=== PATIENT | male | born 1950 | race Caucasian/White ===

== ENCOUNTER → 2016-08-28 | Outpatient (CLI) | payer OTHER ==
[~2016-08-28] MED LIST: CZR25 PO; FINA5TAB PO; LEVO50TA6 PO; ZNTT/150 PO
[2016-08-28 13:03] LABS: BLOOD UREA NITROGEN 19 mg/dl (7-18); CALCIUM 8.4 mg/dl (8.5-10.1); CARBON DIOXIDE 28 mmol/L (21-32); CHLORIDE 105 mmol/L (98-107); CHOLESTEROL 183 mg/dl (0-200); GLUCOSE 83 mg/dl (70-99); POTASSIUM 3.8 mmol/L (3.5-5.1); SODIUM 141 mmol/L (136-145); TRIGLYCERIDES 127 mg/dl (0-150); VERY LOW DENSITY LIPOPROT CALC 25 mg/dl
[2016-08-28 13:14] LABS: CHOLESTEROL/HDL RATIO 4.4; HDL CHOLESTEROL 42 mg/dl; LDL CHOLESTEROL CALCULATED 116 mg/dl
== END | disposition home or self-care (01) ==
LOC: C.LABPBG 08:31
PROVIDERS: ATTEND Family Medicine
DX: E03.9 Hypothyroidism, unspecified (principal); E78.5 Hyperlipidemia, unspecified; I10 Essential (primary) hypertension

== ENCOUNTER → 2016-11-10 | Outpatient (CLI) | payer OTHER | END | disposition home or self-care (01) | LOC: C.LABPBG 09:07 | PROVIDERS: ATTEND Nurse Practitioner Adult Health | DX: Z11.59 Encounter for screening for other viral diseases (principal); N40.0 Benign prostatic hyperplasia without lower urinary tract symptoms ==

== ENCOUNTER → 2016-12-26 | Outpatient (CLI) | payer OTHER ==
--- NOTE | 2016-12-31 09:15 | CODING QUERY MEDICAL NECESSITY ---
SUPPORTING DIAGNOSIS NEEDED Dr. Gómez, A supporting diagnosis is required for the test/procedure performed on this patient in order for us to be reimbursed by the patient's insurance. Please provide a supporting diagnosis for the following test/procedure listed below next to the test name along with your signature. *If there is no additional diagnosis for this patient that would support the following test/procedure please document that below next to the test/procedure. Test(s)/Procedure(s) that require a supporting diagnosis: * ([id number]) VITAMIN D ASSAY DIAGNOSIS: * ([id number]) B12 VITAMIN LEVEL DIAGNOSIS: DATE OF SERVICE: 12/26/16 Provider Signature: Date: Thank you Darrel Jackson [facility] Information Management Once completed, please kindly fax back to [phone] For questions please call [phone]
== END | disposition home or self-care (01) ==
LOC: C.LABPBG 08:34
PROVIDERS: ATTEND Student in an Organized Health Care Education/Training Program
DX: E56.9 Vitamin deficiency, unspecified (principal); G60.9 Hereditary and idiopathic neuropathy, unspecified

== ENCOUNTER → 2017-01-19 | Outpatient (CLI) | payer OTHER ==
--- NOTE | 2017-01-19 07:56 | DIAGNOSTIC IMAGING REPORT ---
(CHEST) THORAX WITHOUT HISTORY:66 [id number] Lung nodule follow-up study. COMPARISON: CT chest 12/28/2015, 01/15/2015, 07/04/2014. TECHNIQUE: Multiple axial CT images of the chest were obtained without IV contrast. FINDINGS: There is slightly decreased attenuation of the left thyroid without large dominant thyroid nodule identified. There is mild symmetric appearing bilateral gynecomastia. No pathologic-appearing adenopathy. Heart is normal in size with minimal coronary arterial calcifications. There is no pneumothorax, pleural effusion or focal airspace consolidation. Central airways are patent. There are multiple lateral noncalcified pulmonary nodules of the lungs bilaterally measuring up to 4 mm, several of which are pleural-based, for example see image 33, 35 and 46 of the axial series. These appear stable dating back to study dated 07/04/2014. No new or suspicious pulmonary nodules are identified. Circumscribed low attenuating lesion left hepatic lobe, 3.6 x 2.6 cm is unchanged suggesting cyst. There is unchanged nonspecific area of decreased attenuation, 8 mm in the posterior spleen likely benign based on stability dating back to 07/04/2014. Multiple gallstones are again noted. Additionally, there is a circumscribed 7 mm low attenuating focus of the pancreatic tail which is unchanged dating back to 07/04/2014 which may reflect a focal area of fat interdigitating between the pancreatic parenchyma. Low attenuating lesion of the superior pole right kidney, 1.7 cm suggests cyst. Soft tissues are unremarkable. The bones appear intact. IMPRESSION: 1. No acute cardiopulmonary abnormality. 2. Multiple noncalcified nodules of the lungs bilaterally as described above measuring up to 4 mm appear unchanged dating back to 07/04/2014. According to the 2017 Lukasz guidelines as below, no additional need for follow-up is needed at this time. 3. Cholelithiasis. 4. Additional incidental findings as above. Please refer to below summary of Fleischner criteria recommendations for follow-up of incidental CT nodules (Lola Herzog, Guidelines for management of small pulmonary nodules detected on CT scans: A statement from the Fleischner Society, Radiology 237: [phone].) SOLID NODULES Solitary nodule size: <6 mm * Low risk patients: no follow-up needed * high risk patients: optional CT at 12 months Note: newly detected indeterminate nodule in persons 35 years of age or older. * Low risk patients: minimal or absent history of smoking and/or other known risk factors * high risk patients: history of smoking or of other known risk factors (e.g. first degree relative with lung cancer, or exposure to asbestos, radon, uranium) * if a nodule up to 8 mm is partly solid or is ground glass further follow-up is required after 24 months to exclude possible slow growing adenocarcinoma (GILL) The above report was generated using voice recognition software. It may contain grammatical, syntax or spelling errors. Electronically signed by: Tj Vallecillo 01/19/2017 7:54 AM Dictated Date/Time: 01/19/2017 7:43 AM
== END | disposition home or self-care (01) ==
LOC: C.CTS 07:06
PROVIDERS: ATTEND Family Medicine
DX: R91.8 Other nonspecific abnormal finding of lung field (principal); K80.20 Calculus of gallbladder without cholecystitis without obstruction

== ENCOUNTER → 2017-03-19 | Outpatient (CLI) | payer OTHER ==
[2017-03-19 12:53] LABS: ALT/SGPT 110 U/L (12-78); BLOOD UREA NITROGEN 17 mg/dl (7-18); BUN/CREATININE RATIO 18.1 (10-20); CALCIUM 9.1 mg/dl (8.5-10.1); CARBON DIOXIDE 30 mmol/L (21-32); CHLORIDE 103 mmol/L (98-107); CHOLESTEROL 219 mg/dl (0-200); CREATININE 0.96 mg/dl (0.60-1.40); GLUCOSE 96 mg/dl (70-99); POTASSIUM 3.4 mmol/L (3.5-5.1); SODIUM 138 mmol/L (136-145); TRIGLYCERIDES 185 mg/dl (0-150); VERY LOW DENSITY LIPOPROT CALC 37 mg/dl
[2017-03-19 13:03] LABS: CHOLESTEROL/HDL RATIO 4.6; HDL CHOLESTEROL 48 mg/dl; LDL CHOLESTEROL CALCULATED 134 mg/dl
== END | disposition home or self-care (01) ==
LOC: C.LABPBG 07:33
PROVIDERS: ATTEND Family Medicine
DX: I10 Essential (primary) hypertension (principal); E03.9 Hypothyroidism, unspecified; E78.5 Hyperlipidemia, unspecified

== ENCOUNTER → 2017-07-27 | Outpatient (CLI) | payer OTHER | END | disposition home or self-care (01) | LOC: C.PATHSPEC 17:51 | PROVIDERS: ATTEND Urology | DX: C61 Malignant neoplasm of prostate (principal); R97.20 Elevated prostate specific antigen [PSA] ==

== ENCOUNTER → 2017-10-22 | Outpatient (CLI) | payer OTHER, MEDICARE ==
[~2017-10-22] MED LIST changes: +CHOL2000 PO; +CYAN100020; +RANI150T85 PO; -ZNTT/150 PO
== END | disposition home or self-care (01) ==
LOC: C.LABPBG 08:13
PROVIDERS: ATTEND Urology
DX: C61 Malignant neoplasm of prostate (principal)

== ENCOUNTER → 2017-12-02 | Outpatient (CLI) | payer OTHER ==
[~2017-12-02] MED LIST changes: -CYAN100020; +CYAN10004 PO; +GADAVIST IV PRN
--- NOTE | 2017-12-02 12:59 | DIAGNOSTIC IMAGING REPORT ---
PROSTATE MRI COMBO CLINICAL HISTORY: 67 years-old Male presenting with PROSTATE CA.. TECHNIQUE: Multisequence, multiplanar MR imaging of the prostate was performed before and after the administration of intravenous contrast. Additional postprocessing was performed on a separate Nualight workstation by the radiologist for 3-D volumetric segmentation of the prostate and contouring of region(s) of interest (MARIE) for targeting. IV contrast: 11 cc Gadavist. COMPARISON: None. FINDINGS: Prostate: The prostate measures 4.4 cm (DynaCAD prostate boundary segmentation was unable to be performed due to the metallic artifact). Moderate changes of benign prostatic hyperplasia. Precontrast T1 weighted imaging demonstrates no evidence of intrinsic T1 hyperintensity to suggest hemorrhage. Evaluation for prostate malignancy is nondiagnostic due to the metallic artifact from the right hip prosthesis. Seminal vesicles normal. Bladder: Normal. Bowel: Visualized portion of the rectum normal. Peritoneum: The Hydrogel is appropriately positioned between the prostate and rectum measuring between 5 mm and 10 mm in thickness. Lymph nodes: No lymphadenopathy in the visualized portion of the pelvis. Vasculature: Iliac vessels patent. Abdominal wall: Normal. Osseous structures: Normal bone marrow signal intensity. Of note, the right hip is obscured by the metallic artifact. IMPRESSION: 1. Evaluation for prostate malignancy is nondiagnostic due to the metallic artifact from the right hip prosthesis. 2. The Hydrogel is appropriately positioned between the prostate and rectum. Electronically signed by: Cristino Gallegos M.D. 12/02/2017 12:58 PM Dictated Date/Time: 12/02/2017 12:46 PM
== END | disposition home or self-care (01) ==
LOC: C.MRIBC 09:56
PROVIDERS: ATTEND Radiology Radiation Oncology
DX: C61 Malignant neoplasm of prostate (principal)

== ENCOUNTER → 2018-02-25 | Outpatient (CLI) | payer OTHER ==
[~2018-02-25] MED LIST changes: +CALC500C70 PO; -GADAVIST IV PRN; +TAMS0.4C38 PO
== END | disposition home or self-care (01) ==
LOC: C.LABPBG 09:12
PROVIDERS: ATTEND Physician Assistant Medical
DX: C61 Malignant neoplasm of prostate (principal)

== ENCOUNTER → 2018-03-04 | Outpatient (CLI) | payer OTHER ==
[2018-03-04 14:20] VITALS: BP 135/86; PULSE 74; TEMP 36.8; O2SAT 97
--- NOTE | 2018-03-04 16:21 | Radiation Oncology Follow-Up ---
Radiation Oncology Follow-Up Date of Visit Mar 04, 2018. 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 Initiation of hormone suppression with Lupron 30 mg IM. Given at urology. Plan for total of 6 months. Status post completion of radiation therapy January 26, 2018. He received 7000 centigrade utilizing hypo-fractionation. Last Edited By: Lelo Freeman on Feb 05, 2018 11:12 History of Present Illness Mr. Junior is without a family history of prostate cancer. The patient has been on finasteride for several years and has had intermittent prostate- specific antigens. On 11/10/2016 his prostate-specific antigen was 5.9. Because of the finasteride this would translate to an effective prostate- specific antigen of 11.8. This was repeated on 05/07/2017 and showed a slight increase to 6.02 which would translate to an effective value of 12.04. Because of the persistent abnormal prostate-specific antigen patient was seen by Dr. Bridges. He was being followed for benign prostatic hypertrophy and increasing urinary symptoms. These symptoms had not dramatically improved from the several years of finasteride. He was given a trial of tamsulosin earlier without any significant improvement. These recent prostate-specific antigens with the first one taken in several years. His digital rectal exam showed no evidence of induration or nodularity. Dr. Bridges therefore spoke with the patient about the benefits of ultrasound-guided biopsies. The patient agreed and on 07/27/2017 he underwent ultrasound-guided biopsies. A total of 14 biopsies were taken. This includes two each from the right and left base, right and left mid, right and left apex and one biopsy each from the right and left anterior gland. All biopsies were negative with the exception of the biopsy from the right anterior gland. This revealed prostatic adenocarcinoma K[place] grade 4+3 involving 10% of the core tissue sample. The Carlita pattern 4 represented approximately 60% of the tumor. There was no perineural or lymphovascular invasion identified. Case: [id number]. Patient returned to discuss these findings with Dr. Bridges. He briefly discussed the range of treatment options that the patient has. He was kind enough to ask us to see the patient to discuss with him the radiation treatment options. He returned to see Dr. Bridges on September 03 to discuss the surgical treatment options. After that discussion the patient wished to consider debbie healing (short-term active surveillance). The patient therefore underwent a repeat PSA on October 22, 2017. The result was 7.55 which is an increase from the prior report of 6.02. These results of course must be doubled due to his long-standing use of finasteride. His functional PSA is therefore 15.1. This places the patient in a an unfavorable intermediate risk category with Carlita grade 4+3. Options of treatment were reviewed with him. His ultimate decision was to go forward with hormone suppression followed by external beam radiation therapy. He completed radiation January 26, 2018. He received 7000 centigrade utilizing hypo-fractionation. Interim History He has been doing well over the past month. He feels that his urinary symptoms have steadily improved. He did give an AUA score of 16. At the end of treatment he had given an AUA score of 19. He had been tried on tamsulosin. He felt that this medication made his urinary symptoms worse especially in regards to urgency. He continues on hormone suppression. He does have hot flashes. He has had weight gain. He is taking calcium and vitamin D as instructed. His next injection of Lupron will be in April. He completed an expanded prostate cancer composite for clinical practice and gave a score of 2 of 12 and urinary incontinence symptoms. He gave a score of 4 of 12 in urinary irritation symptoms. He gave a score of 0 of 12 and bowel symptoms. He gave a score of 8 of 12 and sexual symptoms. He gave a score of 5 of 12 in hormonal vitality symptoms. His total was 19 of 60. He had a recheck PSA February 25, 2018 and that was 0.019. Allergies Coded Allergies: Tramadol (Verified Allergy, Unknown, SEDATED AND CONSTIPATION, 07/28/14) Uncoded Allergies: preop skin scrub (Allergy, Intermediate, skin red, 08/19/17) Home Medications Scheduled Calcium/Vitamin D (Os-Jose 500 Plus D), 1 TAB PO DAILY Cholecalciferol (Vitamin D3), 1 CAP PO DAILY Cyanocobalamin (Vitamin B-12 1000 Mcg), 1 TAB PO DAILY Finasteride (Proscar), 5 MG PO DAILY Levothyroxine Sodium (Levothyroxine Sodium), 50 MCG PO DAILY Losartan Potassium (Losartan Potassium), 25 MG PO DAILY Scheduled PRN Ranitidine (Zantac), 150 MG PO DAILY PRN for heartburn Review of Systems Gastrointestinal: Symptoms: WNL Oral: Symptoms: No Problems Respiratory: Symptoms: WNL Urinary: Symptoms: Nocturia Comments: ncoturia times 3 , urgency , trouble holding urine , dribbling Skin: Symptoms: No Problems Additional Notes: He completed a distress management report and answered "no" to all questions. Physical Exam Vital Signs Date Time Temp Pulse Resp B/P (MAP) Pulse Ox O2 Delivery O2 Flow Rate FiO2 03/04/18 14:20 36.8 74 20 135/86 97 ECOG Performance Status: 0 General Appearance: no apparent distress Eyes: normal inspection, EOMI ENT: normal ENT inspection, hearing grossly normal Neck: no adenopathy, thyroid normal Respiratory/Chest: lungs clear, no respiratory distress, no accessory muscle use Cardiovascular: regular rate, rhythm, no gallop, no murmur Abdomen: non tender, soft, no organomegaly Extremities: no pedal edema Neurologic/Psychiatric: no motor/sensory deficits, alert, normal mood/affect Skin: warm/dry Pain Management Patient Reports Pain: No Side: Bilateral Patient Preferred Pain Scale: 0 - 10 Initial Pain Intensity: 0.0 Pain Management Plan He denies pain therefore requires no pain management. Laboratory Laboratory Results: were reviewed Laboratory Comments: Reviewed in the interim history. Pathology Pathology Results: were reviewed, and pertinent findings noted in HPI Imaging Imaging Studies: not applicable Assessment & Plan Plan: Continue regular follow-up with his primary care provider and urology. He will be seeing Dr. Bridegs in April. He will be due for another Lupron injection. He is taking calcium and vitamin D. We discussed medication to help with the urinary symptoms. He feels that these are improving. He did have side effects to the tamsulosin and therefore will hold on adding any additional medications. Today we completed a cancer survivorship care plan. A copy of the document was given to the patient. He was given an order for a PSA prior to his next visit. We asked him to return to our office in 6 months. He may call if he has any questions or concerns in the interim. Total Time In Follow-Up I spent 20 minutes speaking to the patient in performing examination. I spent 20 minutes reviewing information, preparing the survivorship document, and completing this note. AK Copy To Truman Bridges M.D.; Radha Castelan MD
== END | disposition home or self-care (01) ==
LOC: C.ONC 14:11
PROVIDERS: ATTEND Physician Assistant Medical
DX: Z08 Encounter for follow-up examination after completed treatment for malignant neoplasm (principal); Z92.3 Personal history of irradiation; Z85.46 Personal history of malignant neoplasm of prostate

== ENCOUNTER 2022-07-23 19:53 | Inpatient (IN) ==
[2022-07-23 21:05] LABS: Partial Thromboplastin Time 28.2 Seconds (21.0-31.0); Prothrombin Time 10.6 Seconds (9.0-12.0)
[2022-07-23 21:10] LABS: Basophils # (auto) 0.04 K/uL (0-0.2); Basophils % (auto) 0.2 %; Eosinophils # (auto) 0.03 K/uL (0-0.50); Eosinophils % (auto) 0.2 %; Hematocrit (blood only) 40.7 % (40.1-51.0); Hemoglobin 14.8 g/dl (14.0-18.0); Immature Granulocytes # (auto) 0.15 K/uL (0.00-0.02); Immature Granulocytes % (auto) 0.8 %; Lymphocytes # (auto) 1.29 K/uL (1.2-3.4); Lymphocytes % (auto) 7.1 %; Mean Corpuscular Hemoglobin 30.3 pg (25.0-34.0); Mean Corpuscular Hgb Conc 36.4 g/dL (32.0-36.0); Mean Corpuscular Volume 83.4 fL (80.0-100.0); Mean Platelet Volume 10.6 fL (9.4-12.4); Monocytes # (auto) 1.84 K/uL (0.24-0.82); Monocytes % (auto) 10.2 %; Neutrophils # (auto) 14.76 K/uL (1.4-6.5); Neutrophils % (auto) 81.5 %; Platelet Count 249 K/uL (130-400); RDW Coefficient of Variation 12.7 % (11.5-14.5); RDW Standard Deviation 38.4 fL (36.4-46.3); Red Blood Count 4.88 M/uL (4.63-6.08); White Blood Count 18.11 K/ul (4.8-10.8)
[2022-07-23 21:14] LABS: Albumin Globulin Ratio 1.1 (0.9-2); Albumin Level 3.7 gm/dl (3.4-5.0); BUN Creatinine Ratio 15.4 (10-20); Bilirubin,Total 1.9 mg/dl (0.2-1.0); Calcium 9.2 mg/dl (8.5-10.1); Creatinine Clr Calc Pharmacy 100.2 ml/min; Est GFR (African American) 97.9 ml/min; Est GFR (Non-African American) 84.5 ml/min; Globulin 3.4 gm/dl (2.5-4.0); Potassium 4.1 mmol/L (3.5-5.1); Total Protein 7.1 gm/dl (6.0-8.3)
[2022-07-23] MEDS ORDERED: PIPERACILLIN/TAZOBACTAM 4.5 GM/120 ML BAG IV ONE (21:54)
--- NOTE | 2022-07-23 22:39 | History & Physical Report ---
Date of Service July 23, 2022 Assessment & Plan (1) Abscess, perirectal: Plan: Perirectal abscess noted on US. Patient is presently afebrile, HD stable and nontoxic in appearance. Pain is well controlled. -Continue Zosyn -Pain control with Tylenol PRN, Oxycodone PRN -General Surgery input appreciated Patient also with mild increase in Tbili and AP. Given recent fever will check RUQUS to rule out ductal dilatation, stone or inflammation. (2) Constipation: Plan: Patient reports constipation -Colace 100mg po BID -Miralax daily PRN -Monitor output (3) LPRD (laryngopharyngeal reflux disease): Plan: On Omeprazole at home -Protonix 40mg po daily here (4) Hypothyroidism: Plan: Chronic. Stable -Continue Levothyroxine 75mcg po daily (5) Hypertension, benign essential, goal below 140/90: Plan: Chronic. BP is adequate at present -Continue Losartan 100mg po daily -Monitor (6) Hyperlipidemia LDL goal <130: Plan: Chronic. Stable -Continue Lipitor 10mg po daily (7) Urinary retention: Plan: Patient developed some difficulty with urination then incontinence. He was seen by Urology on 07/23/22 and had a Luo placed. Dark yellow urine in the bag at present. Patient does have a history of prostate cancer for which he follows with Urology s.o XRT, Nohelia. He is to followup in August 2022. -Maintain Luo -Monitor I/Os -Continue Solifenacin -Will send PSA given urinary changes and history of malignancy - he is nearly due for routine followup testing -Urology followup F/E/N - LR at 125mL/hr x 1L Ppx - Lovenox Code -Full History of Present Illness Chief Complaint: Perirectal pain Primary Care Provider: Radha Castelan MD Douglas Junior is a 72yo male with history of HTN, HLP and GERD presenting with perirectal pain. Patient had constipation for which he was seen in the ER on two occasions - 07/18/22 and 07/19/22. He had a CT of the abdomen and pelvis on 07/18/22 which showed no acute intra-abdominal or intrapelvic abnormality. He was seen by his PCP on 07/21/22 with complaint of pain in the right buttock as well as chills. A soft tissue ultrasound was performed which revealed a right perianal multiloculated complex subcutaneous fluid collection measuring 2.4 x 1.2 x 0.7cm favoring subcutaneous/ perianal abscess. Patient was seen by General Surgery on 07/23/22 and was started on Augmentin x 14 day course. Patient developed a fever to 101.8 with chills which prompted him to come to the ER today. He denies chest pain, cough, SOB. Denies abdominal pain, nausea, vomiting, diarrhea. He has been having some urinary retention and was seen by Urology today 07/23/22 and had a Luo catheter placed. He has been taking Colace and Miralax, still constipated. No additional complaints. Allergies Allergy/AdvReac Type Severity Reaction Status Date / Time povidone-iodine Allergy Intermediate skin Verified 07/23/22 22:23 [From Betadine] redness and irritation soap [From Betadine] Allergy Intermediate skin Verified 07/23/22 22:23 redness and irritation tramadol AdvReac Intermediate SEDATED Verified 07/23/22 22:23 AND CONSTIPATION Home Medications Medication Instructions Recorded Confirmed Type cholecalciferol (vitamin D3) 25 2,000 unit PO QAM 04/02/19 07/23/22 History mcg (1,000 unit) tablet (Vitamin D3) vitamin B12 500 mcg-folic acid 400 1 tab PO QAM 04/08/19 07/23/22 History mcg tablet calcium carbonate 200 mg calcium 200 mg PO TID PRN Heartburn 07/24/20 07/23/22 History (500 mg) chewable tablet (Tums) solifenacin 5 mg tablet (Vesicare) 5 mg PO DAILY #90 tabs 09/09/21 07/23/22 Rx atorvastatin 10 mg tablet 10 mg PO QPM #30 tabs 10/17/21 07/23/22 Rx levothyroxine 75 mcg tablet 75 mcg PO QAM #90 tabs 12/11/21 07/23/22 Rx omeprazole 20 mg capsule,delayed 20 mg PO DAILY #30 caps 01/31/22 07/23/22 Rx release losartan 100 mg tablet 100 mg PO QAM #90 tabs 07/09/22 07/23/22 Rx calcium carbonate 500 mg calcium 500 mg PO QDD 07/18/22 07/23/22 History (1,250 mg) tablet triamcinolone acetonide 0.1 % 1 applic topical BID PRN Skin 07/18/22 07/23/22 History topical cream Irritation hydrocodone 5 mg-acetaminophen 325 See Rx Instructions PO .COMPLEX 07/21/22 07/23/22 Rx mg tablet PRN pain #20 tabs ketoconazole 2 % topical cream 1 applic topical BID #30 grams 07/21/22 07/23/22 Rx amoxicillin 875 mg-potassium 1 tab PO BID #28 tabs 07/23/22 07/23/22 Rx clavulanate 125 mg tablet Past Med/Surg History Medical History Asymmetrical right sensorineural hearing loss Enlarged prostate GERD (gastroesophageal reflux disease) rarely. diet related. 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 Suspected sleep apnea scheduled for sleep study later this month Testicular lump Surgical History History of carpal tunnel release of both wrists History of colonoscopy History of kidney surgery 2008 Laparoscopic kidney biopsy (benign) History of revision of total replacement of right hip joint History of tonsillectomy Hx of hernia repair Family History Father Myocardial infarction Colorectal cancer Brother Prostate cancer Cancer of kidney Sister Cirrhosis of liver Other No family history of adverse response to anesthesia Denies family history of Ovarian cancer Breast cancer Social History Smoking Status: Former smoker Age Started Using Tobacco: 35; Age Quit Using Tobacco: 48; packs per day: 1; Smoking End Date: 1999; Second Hand Exposure: No; Do You Dip or Chew Tobacco: No; Tobacco Cessation Education Requested by Patient: No Hx Alcohol Use: Yes Alcohol type: beer Alcohol Intake Frequency: 2-4 x/Month Hx Substance Use: No Preferred Language: Singaporean Communication Ability: Effective Visual Impairment: No Limitations Hearing Ability: Normal Shaft Mechanic Required: No Beliefs That Will Affect Care: None marital status: Current Living Situation: Alone current occupational status: employed current occupation: manage [employer] Other Information That Helps Us Care for You: No Feels Safe at Home: Yes Safety Concerns: Feels Safe At This Time Childhood Exposure to Second-Hand Smoke: Yes Dental Care, Regularly: Yes Physical Activity Frequency: Does not Exercise Seatbelt Use: always Sunscreen Use: No Assistive Devices: Glasses Review of Systems Review of Systems: All systems reviewed & are unremarkable except as noted in HPI & below Physical Exam Physical Exam: General: patient resting comfortably, NAD, non-toxic in appearance, AA&O x 4 Skin: warm, dry, intact, no rashes or lesions HEENT: NC/AT, PERRL, EOMI, anicteric sclera, conjunctiva without injection, external ear normal to inspection and nontender, nares patent, moist mucus membranes, dentition intact, no oropharyngeal lesions, neck supple, trachea midline, no LAD, no thyromegaly, no JVD Heart: +S1/S2, regular, no m/r/g Lungs: equal air entry bilaterally, no rales/rhonchi/wheezes Abd: +BS, soft, NT/ND, no masses/organomegaly/ascites, Luo in place Firm area to right of anus. Minimal fluctuance. Tender. No drainage. Ext: warm, 2+ pulses in UE/LE bilaterally, no clubbing/cyanosis or edema Neuro: nonfocal, patient AA&O x 4, speech intact, no facial droop, moving all extremities on command with equal strength 5/5 Results & Data Results & Data ([facility]) Vital Signs (Past 12 Hours) Vital Signs Temp Pulse Resp BP Pulse Ox O2 Del Method 07/23/22 20:08 37.1 C 98 H 18 152/83 H 96 Room Air Laboratory Results Laboratory Results WBC 18.11 K/ul (4.8-10.8) H 07/23/22 20:37 RBC 4.88 M/uL (4.63-6.08) 07/23/22 20:37 Hgb 14.8 g/dl (14.0-18.0) 07/23/22 20:37 Hct 40.7 % (40.1-51.0) 07/23/22 20:37 MCV 83.4 fL (80.0-100.0) 07/23/22 20:37 MCH 30.3 pg (25.0-34.0) 07/23/22 20:37 MCHC 36.4 g/dL (32.0-36.0) H 07/23/22 20:37 RDW Std Deviation 38.4 fL (36.4-46.3) 07/23/22 20:37 RDW Coeff of Paulette 12.7 % (11.5-14.5) 07/23/22 20:37 Plt Count 249 K/uL (130-400) 07/23/22 20:37 MPV 10.6 fL (9.4-12.4) 07/23/22 20:37 Immature Gran % (Auto) 0.8 % 07/23/22 20:37 Neut % (Auto) 81.5 % 07/23/22 20:37 Lymph % (Auto) 7.1 % 07/23/22 20:37 [place] % (Auto) 10.2 % 07/23/22 20:37 Eos % (Auto) 0.2 % 07/23/22 20:37 Baso % (Auto) 0.2 % 07/23/22 20:37 Neut # (Auto) 14.76 K/uL (1.4-6.5) H 07/23/22 20:37 Lymph # (Auto) 1.29 K/uL (1.2-3.4) 07/23/22 20:37 [place] # (Auto) 1.84 K/uL (0.24-0.82) H 07/23/22 20:37 Eos # (Auto) 0.03 K/uL (0-0.50) 07/23/22 20:37 Baso # (Auto) 0.04 K/uL (0-0.2) 07/23/22 20:37 Immature Gran # (Auto) 0.15 K/uL (0.00-0.02) H 07/23/22 20:37 PT 10.6 Seconds (9.0-12.0) 07/23/22 20:37 INR 1.0 (0.9-1.1) 07/23/22 20:37 APTT 28.2 Seconds (21.0-31.0) 07/23/22 20:37 PTT Ratio 1.0 07/23/22 20:37 Sodium 132 mmol/L (136-145) L 07/23/22 20:37 Potassium 4.1 mmol/L (3.5-5.1) 07/23/22 20:37 Chloride 101 mmol/L (98-107) 07/23/22 20:37 Carbon Dioxide 22 mmol/L (21-32) 07/23/22 20:37 Anion Gap 9 (3-11) 07/23/22 20:37 BUN 14 mg/dl (6-23) 07/23/22 20:37 Creatinine 0.91 mg/dl (0.6-1.4) 07/23/22 20:37 Est Cr Clr Drug Dosing 100.2 ml/min 07/23/22 20:37 Est GFR ( Amer) 97.9 ml/min 07/23/22 20:37 Est GFR (Non-Af Amer) 84.5 ml/min 07/23/22 20:37 BUN/Creatinine Ratio 15.4 (10-20) 07/23/22 20:37 Glucose 122 mg/dl (70-99(Fasting)) H 07/23/22 20:37 Calcium 9.2 mg/dl (8.5-10.1) 07/23/22 20:37 Magnesium 2.0 mg/dl (1.7-2.4) 07/23/22 20:37 Total Bilirubin 1.9 mg/dl (0.2-1.0) H 07/23/22 20:37 AST 78 U/L (13-39) H 07/23/22 20:37 ALT 99 U/L (7-52) H 07/23/22 20:37 Alkaline Phosphatase 187 U/L (34-104) H 07/23/22 20:37 Total Protein 7.1 gm/dl (6.0-8.3) 07/23/22 20:37 Albumin 3.7 gm/dl (3.4-5.0) 07/23/22 20:37 Globulin 3.4 gm/dl (2.5-4.0) 07/23/22 20:37 Albumin/Globulin Ratio 1.1 (0.9-2) 07/23/22 20:37 Urine Color Dark Yellow 07/24/22 00:07 Urine Appearance Clear (Clear) 07/24/22 00:07 Urine pH 5.5 (4.5-7.5) 07/24/22 00:07 Ur Specific [place] 1.021 (1.000-1.030) 07/24/22 00:07 Urine Protein 1+ (Negative) H 07/24/22 00:07 Urine Glucose (UA) Negative (Negative) 07/24/22 00:07 Urine Ketones Negative (Negative) 07/24/22 00:07 Urine Blood 3+ (Negative) H 07/24/22 00:07 Urine Nitrite Negative (Negative) 07/24/22 00:07 Urine Bilirubin Negative (Negative) 07/24/22 00:07 Urine Urobilinogen Negative (Negative) 07/24/22 00:07 Ur Leukocyte Esterase 1+ (Negative) H 07/24/22 00:07 Urine WBC (Auto) 5-10 /hpf (0-5) H 07/24/22 00:07 Urine RBC (Auto) >30 /hpf (0-4) H 07/24/22 00:07 U Hyaline Cast (Auto) 1-5 /lpf (0-5) 07/24/22 00:07 U Epithel Cells (Auto) 5-10 /lpf (0-5) H 07/24/22 00:07 Urine Bacteria (Auto) Negative (Negative) 07/24/22 00:07 SARS-CoV-2, RNA, NAAT NEGATIVE (NEGATIVE) 07/23/22 21:15 Code Status & VTE Plan VTE Prophylaxis Plan VTE Prophylaxis will be ordered: Yes PG Care Time/CCT Total # of Minutes Spent Total Time Spent with Patient: Total time spent is greater than 50% in coordination of care (as documented) at patient's floor/unit and/or counseling patient: Coding Level of Care Code 58985 INT INP/OBS CARE 3/75MIN Diagnoses Abscess, perirectal K61.1 Constipation K59.00 Constipation type: unspecified constipation type LPRD (laryngopharyngeal reflux disease) K21.9 Hypothyroidism E03.9 Hypertension, benign essential, goal below 140/90 I10 Hyperlipidemia LDL goal <130 E78.5 Urinary retention R33.9 (1) Constipation Constipation type: unspecified constipation type Qualified Code(s): K59.00 - Constipation, unspecified
[2022-07-23] MEDS ORDERED: LACTATED RINGER'S 1,000 ML IV SCH (23:32)
[2022-07-23] MEDS ORDERED: ACETAMINOPHEN 325 MG TAB PO PRN (23:32)
[2022-07-23] MEDS ORDERED: DOCUSATE SODIUM 100 MG CAP PO PRN (23:32)
[2022-07-23] MEDS ORDERED: POLYETHYLENE (MIRALAX) 17 GM PACK PO PRN (23:32)
[2022-07-23] MEDS ORDERED: oxyCODONE HCL IR 5 MG TAB (IMMEDIATE RELEASE) PO PRN (23:32)
[2022-07-24 00:16] LABS: Appearance Urine Clear (Clear); Bacteria Urine Automated Negative (Negative); Bilirubin Urine Negative (Negative); Blood Urine 3+ (Negative); Color Urine Dark Yellow; Glucose Urine UA Negative (Negative); Ketones Urine Negative (Negative); Leukocyte Esterase Urine 1+ (Negative); Nitrite Urine Negative (Negative); Protein Urine 1+ (Negative); RBC Urine Automated >30 /hpf (0-4); Specific Gravity Urine 1.021 (1.000-1.030); Urobilinogen Urine Negative (Negative); pH Urine 5.5 (4.5-7.5)
[2022-07-24] MEDS: VESICARE~ORDER AWAITING ACTION SCH ×4 (00:20→23:13)
[2022-07-24] MEDS: ENOXAPARIN INJ 40 MG/0.4 ML SYR SQ SCH ×2 (00:20→20:57)
--- NOTE | 2022-07-24 00:37 | Emergency Department Note ---
Impression & Plan Abscess, perirectal, Leukocytosis, Fever ED Provider Note INFORMANT: Patient and family ED PROVIDER(S): Harman Edwards MD CHIEF COMPLAINT: Fever and rectal abscess PLAN: Disposition: Admitted Condition: Good Outpatient prescription management: none Referral: None MEDICAL DECISION MAKING: Patient presented because of fever and known rectal infection. Outpatient prior records were reviewed. Patient had tenderness on examination. His CBC revealed a white blood cell count elevation of 18,000. This increased significantly from 10,000 on July 18. He declined analgesia as he was comfortable as long as he did not move. The patient was started on IV Zosyn after blood cultures. Patient's chemistry panel was unremarkable. Further management in the hospital will be necessary for treatment and consultation. I did consult with Dr. Lipscomb of the hospitalist service. Patient was evaluated in the ER and admitted for further management. Family was in agreement. After review of the information above and other included data, I feel the patient requires hospital admission. Triage Nursing notes reviewed and agree them. Vital Signs: reviewed and remarkable for no significant abnormalities Prior /Outside records reviewed: Outpatient and prior records reviewed regarding this current illness. Surgery had initiated 14 days of Augmentin. Differential diagnosis: Cellulitis, abscess, MRSA infection, DVT, necrotizing fasciitis, dermatitis, constipation, diverticulitis, viral syndrome, bacteremia, sepsis, as well as other pathologies. Diagnostics, as interpreted by me: ECG: Twelve-lead ECG reveals normal sinus rhythm at 93 bpm. Left axis deviation. Septal and inferior Q waves. No ST elevation. Cardiac Monitoring: Cardiac monitoring ordered by me: The patient was placed on continuous cardiac monitoring and observed. It revealed a normal sinus rhythm at 84 beats per minute without ectopy or evidence of dysrhythmia. Medical decision rules: none Imaging studies: Deferred HPI: The patient is a 72year old male who presents to the Emergency Room with complaints of fever and rectal abscess. This started over the last several days and is worsening. Patient was diagnosed as an outpatient and followed up with surgery today. Dr. Begum of surgery recommended antibiotics and monitoring before intervention given the size. Patient was instructed if he develops fever or worsening problems to notify them. He had a fever and contacted the clinic and was referred to the ER. The patient also notes the following associated symptoms, urinary retention that has been addressed by urology with a Luo catheter. The patient has started on Augmentin for relieving factors. Current pain is rated as 0/10. Pain is moderate with palpation or movement however. Pt denies LOC, headache, chills, diaphoresis, visual changes, neck pain, chest pain, breathing difficulties, nausea, vomiting, abdominal pain, back pain, melena, hematochezia, numbness, weakness, lymphadenopathy, rash, or other complaints. PAST MEDICAL HISTORY: See Below, hypertension PAST SURGICAL HISTORY: See Below, SOCIAL HISTORY: See Below, HOME MEDICATIONS: See Below ALLERGIES: See Below VITALS: See Below PHYSICAL EXAMINATION: GENERAL: Awake, alert, uncomfortable-appearing, in no distress HENT: Normocephalic, atraumatic. Oropharynx unremarkable. EYES: Normal conjunctiva. Sclera non-icteric. NECK: Inspection normal. Non-tender. Supple. No nuchal rigidity. FROM. No masses. RESPIRATORY: Clear to auscultation. No wheezes. No rales. Normal respiratory effort. CARDIAC: Normal rate. Normal rhythm. No murmurs. No rubs. Extremities warm and well perfused. Pulses equal. No JVD. GI: Soft, non-distended. No tenderness to palpation. No rebound or guarding. No masses. RECTAL: Moderate tenderness and induration with some fluctuance noted in the area on the right side of the rectum. No drainage. MUSCULOSKELETAL: Atraumatic. Chest examination reveals no tenderness. The back is symmetrical on inspection without obvious abnormality. There is no CVA tenderness to palpation. No joint edema. LOWER EXTREMITIES: Calves are equal size bilaterally and non-tender. No edema. No discoloration. NEURO: Normal sensorium. No sensory or motor deficits noted. SKIN: No rash or jaundice noted. Past Med/Surg History Medical History Asymmetrical right sensorineural hearing loss Enlarged prostate GERD (gastroesophageal reflux disease) rarely. diet related. 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 Suspected sleep apnea scheduled for sleep study later this month Testicular lump Surgical History History of carpal tunnel release of both wrists History of colonoscopy History of kidney surgery 2009 Laparoscopic kidney biopsy (benign) History of revision of total replacement of right hip joint History of tonsillectomy Hx of hernia repair Family History Father Myocardial infarction Colorectal cancer Brother Prostate cancer Cancer of kidney Sister Cirrhosis of liver Other No family history of adverse response to anesthesia Denies family history of Ovarian cancer Breast cancer Social History Smoking Status: Former smoker Age Started Using Tobacco: 35; Age Quit Using Tobacco: 48; packs per day: 1; Smoking End Date: 1999; Second Hand Exposure: No; Do You Dip or Chew Tobacco: No; Tobacco Cessation Education Requested by Patient: No Hx Alcohol Use: Yes Alcohol type: beer Alcohol Intake Frequency: 2-4 x/Month Hx Substance Use: No Preferred Language: Arabic Communication Ability: Effective Visual Impairment: No Limitations Hearing Ability: Normal Personal Injury Law Specialist Required: No Beliefs That Will Affect Care: None marital status: Current Living Situation: Alone current occupational status: employed current occupation: manage [employer] Other Information That Helps Us Care for You: No Feels Safe at Home: Yes Safety Concerns: Feels Safe At This Time Childhood Exposure to Second-Hand Smoke: Yes Dental Care, Regularly: Yes Physical Activity Frequency: Does not Exercise Seatbelt Use: always Sunscreen Use: No Assistive Devices: Glasses Allergies Allergies Allergy/AdvReac Type Severity Reaction Status Date / Time povidone-iodine Allergy Intermediate skin Verified 07/23/22 22:23 [From Betadine] redness and irritation soap [From Betadine] Allergy Intermediate skin Verified 07/23/22 22:23 redness and irritation tramadol AdvReac Intermediate SEDATED Verified 07/23/22 22:23 AND CONSTIPATION Home Meds Home Medications Medication Instructions Recorded Confirmed cholecalciferol (vitamin D3) 25 2,000 unit PO QAM 04/02/19 07/23/22 mcg (1,000 unit) tablet (Vitamin D3) vitamin B12 500 mcg-folic acid 400 1 tab PO QAM 04/08/19 07/23/22 mcg tablet calcium carbonate 200 mg calcium 200 mg PO TID PRN Heartburn 07/24/20 07/23/22 (500 mg) chewable tablet (Tums) calcium carbonate 500 mg calcium 500 mg PO QDD 07/18/22 07/23/22 (1,250 mg) tablet triamcinolone acetonide 0.1 % 1 applic topical BID PRN Skin 07/18/22 07/23/22 topical cream Irritation Previous Rx's Medication Instructions Recorded solifenacin 5 mg tablet (Vesicare) 5 mg PO DAILY #90 tabs 09/09/21 atorvastatin 10 mg tablet 10 mg PO QPM #30 tabs 10/17/21 levothyroxine 75 mcg tablet 75 mcg PO QAM #90 tabs 12/11/21 omeprazole 20 mg capsule,delayed 20 mg PO DAILY #30 caps 01/31/22 release losartan 100 mg tablet 100 mg PO QAM #90 tabs 07/09/22 hydrocodone 5 mg-acetaminophen 325 See Rx Instructions PO .COMPLEX 07/21/22 mg tablet PRN pain #20 tabs ketoconazole 2 % topical cream 1 applic topical BID #30 grams 07/21/22 amoxicillin 875 mg-potassium 1 tab PO BID #28 tabs 07/23/22 clavulanate 125 mg tablet Results & Data (ED) Vital Signs Vital Signs - 24 hr 07/23/22 20:08 Temperature 37.1 C Temperature Source Temporal Artery Scan Pulse Rate 98 H Respiratory Rate 18 Respiratory Effort / Characteristics Non-Labored Spontaneous Respiratory Depth Normal Blood Pressure 152/83 H Blood Pressure Mean 106 Blood Pressure Position Sitting Pulse Oximetry 96 Oxygen Delivery Method Room Air Sepsis Recent Fever Within 48 Hours Yes Sepsis New/Unexplained Change in Mental Status No Sepsis Action Taken by Nursing No Action Required Laboratory Data 07/23/22 20:37 07/23/22 20:37 Lab Results 07/23/22 07/23/22 07/23/22 Range/Units 20:37 20:37 20:37 WBC 18.11 H (4.8-10.8) K/ul RBC 4.88 (4.63-6.08) M/uL Hgb 14.8 (14.0-18.0) g/dl Hct 40.7 (40.1-51.0) % MCV 83.4 (80.0-100.0) fL MCH 30.3 (25.0-34.0) pg MCHC 36.4 H (32.0-36.0) g/dL RDW Std Deviation 38.4 (36.4-46.3) fL RDW Coeff of Paulette 12.7 (11.5-14.5) % Plt Count 249 (130-400) K/uL MPV 10.6 (9.4-12.4) fL Immature Gran % (Auto) 0.8 % Neut % (Auto) 81.5 % Lymph % (Auto) 7.1 % [place] % (Auto) 10.2 % Eos % (Auto) 0.2 % Baso % (Auto) 0.2 % Neut # (Auto) 14.76 H (1.4-6.5) K/uL Lymph # (Auto) 1.29 (1.2-3.4) K/uL [place] # (Auto) 1.84 H (0.24-0.82) K/uL Eos # (Auto) 0.03 (0-0.50) K/uL Baso # (Auto) 0.04 (0-0.2) K/uL Immature Gran # (Auto) 0.15 H (0.00-0.02) K/uL PT 10.6 (9.0-12.0) Seconds INR 1.0 (0.9-1.1) APTT 28.2 (21.0-31.0) Seconds PTT Ratio 1.0 Sodium 132 L (136-145) mmol/L Potassium 4.1 (3.5-5.1) mmol/L Chloride 101 (98-107) mmol/L Carbon Dioxide 22 (21-32) mmol/L Anion Gap 9 (3-11) BUN 14 (6-23) mg/dl Creatinine 0.91 (0.6-1.4) mg/dl Est Cr Clr Drug Dosing 100.2 ml/min Est GFR ( Amer) 97.9 ml/min Est GFR (Non-Af Amer) 84.5 ml/min BUN/Creatinine Ratio 15.4 (10-20) Glucose 122 H (70-99(Fasting)) mg/dl Calcium 9.2 (8.5-10.1) mg/dl Magnesium 2.0 (1.7-2.4) mg/dl Total Bilirubin 1.9 H (0.2-1.0) mg/dl AST 78 H (13-39) U/L ALT 99 H (7-52) U/L Alkaline Phosphatase 187 H (34-104) U/L Total Protein 7.1 (6.0-8.3) gm/dl Albumin 3.7 (3.4-5.0) gm/dl Globulin 3.4 (2.5-4.0) gm/dl Albumin/Globulin Ratio 1.1 (0.9-2) SARS-CoV-2, RNA, NAAT (NEGATIVE) 07/23/22 Range/Units 21:15 WBC (4.8-10.8) K/ul RBC (4.63-6.08) M/uL Hgb (14.0-18.0) g/dl Hct (40.1-51.0) % MCV (80.0-100.0) fL MCH (25.0-34.0) pg MCHC (32.0-36.0) g/dL RDW Std Deviation (36.4-46.3) fL RDW Coeff of Paulette (11.5-14.5) % Plt Count (130-400) K/uL MPV (9.4-12.4) fL Immature Gran % (Auto) % Neut % (Auto) % Lymph % (Auto) % [place] % (Auto) % Eos % (Auto) % Baso % (Auto) % Neut # (Auto) (1.4-6.5) K/uL Lymph # (Auto) (1.2-3.4) K/uL [place] # (Auto) (0.24-0.82) K/uL Eos # (Auto) (0-0.50) K/uL Baso # (Auto) (0-0.2) K/uL Immature Gran # (Auto) (0.00-0.02) K/uL PT (9.0-12.0) Seconds INR (0.9-1.1) APTT (21.0-31.0) Seconds PTT Ratio Sodium (136-145) mmol/L Potassium (3.5-5.1) mmol/L Chloride (98-107) mmol/L Carbon Dioxide (21-32) mmol/L Anion Gap (3-11) BUN (6-23) mg/dl Creatinine (0.6-1.4) mg/dl Est Cr Clr Drug Dosing ml/min Est GFR ( Amer) ml/min Est GFR (Non-Af Amer) ml/min BUN/Creatinine Ratio (10-20) Glucose (70-99(Fasting)) mg/dl Calcium (8.5-10.1) mg/dl Magnesium (1.7-2.4) mg/dl Total Bilirubin (0.2-1.0) mg/dl AST (13-39) U/L ALT (7-52) U/L Alkaline Phosphatase (34-104) U/L Total Protein (6.0-8.3) gm/dl Albumin (3.4-5.0) gm/dl Globulin (2.5-4.0) gm/dl Albumin/Globulin Ratio (0.9-2) SARS-CoV-2, RNA, NAAT NEGATIVE (NEGATIVE) Administered Medications Enoxaparin Sodium (Enoxaparin Inj 40 Mg/0.4 Ml Syr) 40 mg SQ HS PEDRO Stop: 08/22/22 23:44 Last Admin: 07/24/22 00:20 Dose: 40 mg Documented By: Lactated Ringer's (Lr) 1,000 mls @ 125 mls/hr IV .Q8H PEDRO Stop: 07/24/22 07:31 Last Admin: 07/24/22 00:01 Dose: 125 mls/hr Documented By: Miscellaneous (Vesicare~Order Awaiting Action) 1 each N/A QS PEDRO Stop: 08/23/22 00:00 Last Admin: 07/24/22 00:20 Dose: Not Given Documented By: Discontinued Medications Piperacillin Sod/Tazobactam Sod (Zosyn) 4.5 gm in 120 mls @ 240 mls/hr IV NOW ONE Stop: 07/23/22 22:23 Last Infusion: 07/23/22 23:42 Dose: 0 mls/hr Documented By: Admin: 07/23/22 23:11 Dose: 240 mls/hr Documented By: [facility] Discharge Plan Visit Data Chief Complaint: Constipation Stated Complaint: ABSCESS, CONSTIPATION, HIGH FEVER ED Provider: Hraman Edwards Discharge Problem: Abscess, perirectal, Leukocytosis, Fever Patient Disposition: Admitted As Inpatient Discharge Instructions Interventions: ED Discharge Assessment Last Done: 07/23/22 23:10
[2022-07-24] MEDS: LEVOTHYROXINE SODIUM 75 MCG TABLET PO SCH (05:39)
[2022-07-24] MEDS: PIPERACILLIN/TAZOBACTAM 4.5 GM in DEXTROSE 5% 100 ML IV SCH ×3 (05:40→23:11)
--- NOTE | 2022-07-24 07:00 | Ultrasound Report ---
ULTRASOUND RIGHT UPPER QUADRANT ABDOMEN CLINICAL HISTORY: Abnormal liver function studies. COMPARISON STUDY: Abdominal CT dated 07/18/2022 TECHNIQUE: Real-time, grayscale, and color flow sonography of the right upper quadrant of the abdomen was performed. Images are reviewed in the transverse and longitudinal planes. FINDINGS: Liver: The liver is normal in size. Echotexture is heterogeneous and slightly increased. There is no intrahepatic biliary ductal dilatation. The main portal vein is patent. A 4.9 cm simple cyst is noted in the left lobe. Gallbladder: There are shadowing calcified gallstones. There is no gallbladder wall thickening or per icholecystic fluid. A sonographic Bennett's sign is reportedly absent. The common bile duct measures u p to 0.4 cm in diameter. Pancreas: Not visualized due to overlying bowel gas. Right kidney: Survey images of the right kidney demonstrate normal size and echotexture. There is no hydronephrosis. A 2.4 cm cyst is seen in the right upper pole. Ascites: None. IMPRESSION: 1. There is evidence of mild hepatic steatosis. 2. Cholelithiasis without sonographic evidence of acute cholecystitis. 3. Nonvisualization of the pancreas. ACT 112: Negative or not required by law. Electronically signed by: Jasiel Henry M.D. 07/24/2022 6:57 AM
[2022-07-24 07:39] LABS: Hematocrit (blood only) 38.1 % (40.1-51.0); Hemoglobin 13.3 g/dl (14.0-18.0); Mean Corpuscular Hemoglobin 29.8 pg (25.0-34.0); Mean Corpuscular Hgb Conc 34.9 g/dL (32.0-36.0); Mean Corpuscular Volume 85.2 fL (80.0-100.0); Mean Platelet Volume 10.6 fL (9.4-12.4); Platelet Count 183 K/uL (130-400); RDW Coefficient of Variation 12.7 % (11.5-14.5); RDW Standard Deviation 39.8 fL (36.4-46.3); Red Blood Count 4.47 M/uL (4.63-6.08); White Blood Count 12.36 K/ul (4.8-10.8)
[2022-07-24] MEDS: PANTOprazole 40 MG TAB PO SCH (07:51)
[2022-07-24] MEDS: LOSARTAN POTASSIUM 50 MG TAB PO SCH (07:51)
--- NOTE | 2022-07-24 08:43 | Anesthesiology Consultation ---
Date of Service July 24, 2022 Assessment & Plan Chart Review Chart Review: Acceptable Risk for Surgery and Patient NOT seen in Pre Admission Testing History Surgery Operation Date: 07/24/22 14:30 Proposed Procedures p Incision and Drainage Perianal Abscess - Omari Begum DO Height/Weight Height: 6 ft Weight: 123.8 kg Allergies Allergy/AdvReac Type Severity Reaction Status Date / Time povidone-iodine Allergy Intermediate skin Verified 07/23/22 22:23 [From Betadine] redness and irritation soap [From Betadine] Allergy Intermediate skin Verified 07/23/22 22:23 redness and irritation tramadol AdvReac Intermediate SEDATED Verified 07/23/22 22:23 AND CONSTIPATION Medications Home Medications Medication Instructions Recorded Confirmed Last Taken cholecalciferol (vitamin D3) 25 2,000 unit PO QAM 04/02/19 07/23/22 07/18/22 mcg (1,000 unit) tablet (Vitamin D3) vitamin B12 500 mcg-folic acid 400 1 tab PO QAM 04/08/19 07/23/22 07/18/22 mcg tablet calcium carbonate 200 mg calcium 200 mg PO TID PRN Heartburn 07/24/20 07/23/22 07/26/20 (500 mg) chewable tablet (Tums) solifenacin 5 mg tablet (Vesicare) 5 mg PO DAILY #90 tabs 09/09/21 07/23/22 07/18/22 atorvastatin 10 mg tablet 10 mg PO QPM #30 tabs 10/17/21 07/23/22 07/17/22 levothyroxine 75 mcg tablet 75 mcg PO QAM #90 tabs 12/11/21 07/23/22 07/18/22 omeprazole 20 mg capsule,delayed 20 mg PO DAILY #30 caps 01/31/22 07/23/22 07/18/22 release losartan 100 mg tablet 100 mg PO QAM #90 tabs 07/09/22 07/23/22 07/18/22 calcium carbonate 500 mg calcium 500 mg PO QDD 07/18/22 07/23/22 07/17/22 (1,250 mg) tablet triamcinolone acetonide 0.1 % 1 applic topical BID PRN Skin 07/18/22 07/23/22 Unknown topical cream Irritation hydrocodone 5 mg-acetaminophen 325 See Rx Instructions PO .COMPLEX 07/21/22 Unknown mg tablet PRN pain #20 tabs ketoconazole 2 % topical cream 1 applic topical BID #30 grams 07/21/22 07/23/22 Unknown amoxicillin 875 mg-potassium 1 tab PO BID #28 tabs 07/23/22 07/23/22 Unknown clavulanate 125 mg tablet Active Medications Generic Name Dose Route Start Last Admin Trade Name Freq PRN Reason Stop Dose Admin Enoxaparin Sodium 40 mg 07/23/22 23:45 07/24/22 00:20 Enoxaparin Inj 40 Mg/0.4 Ml Syr SQ 08/22/22 23:44 40 mg HS PEDRO Administration Piperacillin Sod/Tazobactam 120 mls @ 30 mls/hr 07/24/22 06:00 07/24/22 05:40 Sod 4.5 gm/ Dextrose IV 08/03/22 05:59 30 mls/hr Q8H PEDRO Administration Protocol Levothyroxine Sodium 75 mcg 07/24/22 06:30 07/24/22 05:39 Levothyroxine Sodium 75 Mcg Tablet PO 08/23/22 06:29 75 mcg DAILYBB PEDRO Administration Losartan Potassium 100 mg 07/24/22 09:00 07/24/22 07:51 Losartan Potassium 50 Mg Tab PO 08/23/22 08:59 Not Given QAM PEDRO Miscellaneous 1 each 07/24/22 00:00 07/24/22 07:51 Vesicare~Order Awaiting Action N/A 08/23/22 00:00 Not Given QS PEDRO Pantoprazole Sodium 40 mg 07/24/22 09:00 07/24/22 07:51 Pantoprazole 40 Mg Tab PO 08/23/22 08:59 Not Given QAM PEDRO Past Medical History Medical History Asymmetrical right sensorineural hearing loss Enlarged prostate GERD (gastroesophageal reflux disease) rarely. diet related. 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 Suspected sleep apnea scheduled for sleep study later this month Testicular lump Past Family History Family History Father Myocardial infarction Colorectal cancer Brother Prostate cancer Cancer of kidney Sister Cirrhosis of liver Other No family history of adverse response to anesthesia Denies family history of Ovarian cancer Breast cancer Past Surgical History Surgical History History of carpal tunnel release of both wrists History of colonoscopy History of kidney surgery 2009 Laparoscopic kidney biopsy (benign) History of revision of total replacement of right hip joint History of tonsillectomy Hx of hernia repair Social History Smoking Status: Former smoker tobacco type: cigarettes Do You Dip or Chew Tobacco: No Smoking End Date: 1999 Hx Alcohol Use: Yes Alcohol type: beer alcohol intake frequency: a few times a month Hx Substance Use: No substance use type: does not use Last Used Substance Other:: 9-10 years ago Physical Exam Vital Signs Last Vital Signs Temp 37 C 07/24/22 07:21 Pulse 71 07/24/22 07:21 Resp 16 07/24/22 07:21 BP 144/79 H 07/24/22 07:21 Pulse Ox 93 07/24/22 07:21 O2 Del Method 07/24/22 07:21 Testing Laboratory Results 07/24/22 07:12 PT 10.6 Seconds (9.0-12.0) 07/23/22 20:37 INR 1.0 (0.9-1.1) 07/23/22 20:37 APTT 28.2 Seconds (21.0-31.0) 07/23/22 20:37 Urine Color Dark Yellow 07/24/22 00:07 Urine Appearance Clear (Clear) 07/24/22 00:07 Urine pH 5.5 (4.5-7.5) 07/24/22 00:07 Ur Specific [place] 1.021 (1.000-1.030) 07/24/22 00:07 Urine Protein 1+ (Negative) H 07/24/22 00:07 Urine Glucose (UA) Negative (Negative) 07/24/22 00:07 Urine Ketones Negative (Negative) 07/24/22 00:07 Urine Nitrite Negative (Negative) 07/24/22 00:07 Ur Leukocyte Esterase 1+ (Negative) H 07/24/22 00:07 Urine WBC (Auto) 5-10 /hpf (0-5) H 07/24/22 00:07 Urine RBC (Auto) >30 /hpf (0-4) H 07/24/22 00:07 U Hyaline Cast (Auto) 1-5 /lpf (0-5) 07/24/22 00:07 U Epithel Cells (Auto) 5-10 /lpf (0-5) H 07/24/22 00:07 Urine Bacteria (Auto) Negative (Negative) 07/24/22 00:07
--- NOTE | 2022-07-24 08:52 | Surgery Consultation ---
Date of Consultation July 24, 2022 Assessment & Plan (1) Abscess, perirectal: This is a 72y M with a PMH of prostate ca, hypothyroid, HTN, who presented to the [facility] ED on 07/23/22 with fevers and known perianal abscess. US on 07/21 confirmed a 2.4 x 1.2 x 0.7 fluid collection concerning for abscess. Patient se en in clinic and prescribed a course of abx, however he developed fevers/chills and presented to the ER yesterday evening for further evaluation. He has since been admitted and started on IV abx. WBC 18 yesterday, today 12. Afebrile. On exam there is + tenderness and small amount of induration to the R perianal region. no drainage. no obvious fluctuance. Due to ongoing issues we will proceed with taking the patient to the OR today for I&D of the area of concern. Of note he also was noted to have some elevated LFTs, US RUQ revealed + stones, no evidence of cholecystitis, and no CBD dilation. He is asymptomatic from abdominal standpoint. Please keep patient NPO with IV abx and we will proceed with surgical intervention for I&D of perianal abscess in the OR today with Dr. Begum. Supervising Physician Co-Signing Physician Notes I personally saw and evaluated the patient with Nickie park PA-C and agree with the assessment plan. 72-year-old male with perirectal abscess He was having worsening pain and developed some fevers yesterday and was admitted to the hospital Will take the patient the operating room today for incision and drainage of perirectal abscess Consent was obtained, risk discussed including bleeding, infection, nonhealing wound History of Present Illness Attending Physician: Peg Ruffin MD History of Present Illness This is a 72y M with a PMH of prostate ca, hypothyroid, HTN, who presented to the [facility] ED on 07/23/22 with fevers. He was evaluated in our clinic yesterday as a referral for a known maryan-anal abscess found on CT after workup for constipa tion and confirmed US imaging after an appt with his PCP. Due to small size and depth of abscess it was recommended to trial a course of abx prior to consideration of surgical intervention. Patient states the the area of pain/swelling began to the right side of his anus/buttock about 1 week ago. He states is has progressively gotten worse. Unfortunately the patient developed fevers/chills which prompted him to go to the ER for further evaluation. He was admitted to the medicine service and surgery was consulted to follow up on the patient. Allergies Allergy/AdvReac Type Severity Reaction Status Date / Time povidone-iodine Allergy Intermediate skin Verified 07/23/22 22:23 [From Betadine] redness and irritation soap [From Betadine] Allergy Intermediate skin Verified 07/23/22 22:23 redness and irritation tramadol AdvReac Intermediate SEDATED Verified 07/23/22:23 AND CONSTIPATION Home Medications Medication Instructions Recorded Confirmed Type cholecalciferol (vitamin D3) 25 2,000 unit PO QAM 04/02/19 07/23/22 History mcg (1,000 unit) tablet (Vitamin D3) vitamin B12 500 mcg-folic acid 400 1 tab PO QAM 04/08/19 07/23/22 History mcg tablet calcium carbonate 200 mg calcium 200 mg PO TID PRN Heartburn 07/24/20 07/23/22 History (500 mg) chewable tablet (Tums) solifenacin 5 mg tablet (Vesicare) 5 mg PO DAILY #90 tabs 09/09/21 07/23/22 Rx atorvastatin 10 mg tablet 10 mg PO QPM #30 tabs 10/17/21 07/23/22 Rx levothyroxine 75 mcg tablet 75 mcg PO QAM #90 tabs 12/11/21 07/23/22 Rx omeprazole 20 mg capsule,delayed 20 mg PO DAILY #30 caps 01/31/22 07/23/22 Rx release losartan 100 mg tablet 100 mg PO QAM #90 tabs 07/09/22 07/23/22 Rx calcium carbonate 500 mg calcium 500 mg PO QDD 07/18/22 07/23/22 History (1,250 mg) tablet triamcinolone acetonide 0.1 % 1 applic topical BID PRN Skin 07/18/22 07/23/22 History topical cream Irritation hydrocodone 5 mg-acetaminophen 325 See Rx Instructions PO .COMPLEX 07/21/22 07/23/22 Rx mg tablet PRN pain #20 tabs ketoconazole 2 % topical cream 1 applic topical BID #30 grams 07/21/22 07/23/22 Rx amoxicillin 875 mg-potassium 1 tab PO BID #28 tabs 07/23/22 07/23/22 Rx clavulanate 125 mg tablet Patient History Medical History Asymmetrical right sensorineural hearing loss Enlarged prostate GERD (gastroesophageal reflux disease) rarely. diet related. 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 Suspected sleep apnea scheduled for sleep study later this month Testicular lump Surgical History History of carpal tunnel release of both wrists History of colonoscopy History of kidney surgery 2008 Laparoscopic kidney biopsy (benign) History of revision of total replacement of right hip joint History of tonsillectomy Hx of hernia repair Family History Father Myocardial infarction Colorectal cancer Brother Prostate cancer Cancer of kidney Sister Cirrhosis of liver Other No family history of adverse response to anesthesia Denies family history of Ovarian cancer Breast cancer Social History Smoking Status: Former smoker Age Started Using Tobacco: 35; Age Quit Using Tobacco: 48; packs per day: 1; Smoking End Date: 1999; Second Hand Exposure: No; Do You Dip or Chew Tobacco: No; Tobacco Cessation Education Requested by Patient: No Hx Alcohol Use: Yes Alcohol type: beer Alcohol Intake Frequency: 2-4 x/Month Hx Substance Use: No Preferred Language: Dutch Communication Ability: Effective Visual Impairment: No Limitations Hearing Ability: Normal Energy Professional Required: No Beliefs That Will Affect Care: None marital status: Current Living Situation: Alone current occupational status: employed current occupation: manage [employer] Other Information That Helps Us Care for You: No Feels Safe at Home: Yes Safety Concerns: Feels Safe At This Time Childhood Exposure to Second-Hand Smoke: Yes Dental Care, Regularly: Yes Physical Activity Frequency: Does not Exercise Seatbelt Use: always Sunscreen Use: No Assistive Devices: Glasses Review of Systems Constitutional: + fever and + chills decreased appetite Respiratory: no dyspnea Cardiovascular: no chest pain Gastrointestinal: + problem reported (+ pain to R perianal region); no abdominal pain, no nausea and no vomiting previously constipated. Genitourinary: + problem reported (ayala in place) Physical Exam Physical Exam: awake/alert, no distress Respiratory: normal respiratory effort Gastrointestinal (Abdomen): Percussion/Palpation: abdomen soft + tenderness and small amount of induration to the R perianal region. no drainage. no obvious fluctuance Results & Data ([facility]) Vital Signs (Past 12 Hours) Vital Signs Temp Pulse Resp BP Pulse Ox O2 Del Method 07/24/22 07:21 37 C 71 16 144/79 H 93 Room Air 07/23/22 23:43 36.8 C 84 18 138/79 98 Room Air Diagnostic Findings US soft tissue plvcwall/buttock CLINICAL HISTORY: tender area, ?abscess/cyst, [id number] COMPARISON STUDY: Abdomen and pelvis CT 07/18/2022. FINDINGS: Within the right perianal region there is a multiloculated complex subcutaneous fluid collection measuring approximately 2.4 x 1.2 x 0.7 cm. This favors a subcutaneous/perianal abscess. In retrospect, this was present on the prior CT examination. IMPRESSION: Within the right perianal region there is a multiloculated complex subcutaneous fluid collection measuring approximately 2.4 x 1.2 x 0.7 cm. This favors a subcutaneous/perianal abscess. ACT 112: Negative or not required by law. Electronically signed by: Cristino Gallegos M.D. 07/21/2022 5:58 PM PG Care Time/CCT Total # of Minutes Spent Total Time Spent with Patient: Total time spent is greater than 50% in coordination of care (as documented) at patient's floor/unit and/or counseling patient: Coding Level of Care Code 52815 INT INP/OBS CARE 140MIN Diagnoses Abscess, perirectal K61.1
--- NOTE | 2022-07-24 09:13 | Electrocardiogram Report ---
Test Reason : Blood Pressure : / mmHG Vent. Rate : 093 BPM Atrial Rate : 093 BPM P-R Int : 170 ms QRS Dur : 096 ms QT Int : 354 ms P-R-T Axes : 051 -70 046 degrees QTc Int : 440 ms Poor data quality, interpretation may be adversely affected Normal sinus rhythm Left anterior fascicular block Possible Old Anterior infarct (cited on or before 20-JUL-2020) Abnormal ECG When compared with ECG of 20-JUL-2020 10:04, NM interval has decreased Confirmed by Karri Zambrano ([id number]) on 07/24/2022 9:12:45 AM Referred By: Omari Begum Confirmed By:Karri Zambrano
[2022-07-24 09:42] LABS: Albumin Level 3.2 gm/dl (3.4-5.0); BUN Creatinine Ratio 12.8 (10-20); Bilirubin Direct 0.7 mg/dl (0-0.2); Bilirubin,Total 1.7 mg/dl (0.2-1.0); Calcium 8.6 mg/dl (8.5-10.1); Creatinine Clr Calc Pharmacy 107.1 ml/min; Est GFR (African American) 101.1 ml/min; Est GFR (Non-African American) 87.2 ml/min; Potassium 3.8 mmol/L (3.5-5.1); Total Protein 6.1 gm/dl (6.0-8.3)
[2022-07-24] MEDS: fentaNYL citrate 100 MCG/2 ML VIAL IV PRN ×5 (12:04→14:14)
[2022-07-24] MEDS ORDERED: fentaNYL citrate 100 MCG/2 ML VIAL ONE (12:36)
[2022-07-24] MEDS ORDERED: GLYCOPYRROLATE 0.2 MG/ML VIAL ONE (12:36)
[2022-07-24] MEDS ORDERED: ONDANSETRON INJ 2 MG/ML 2 ML VIAL ONE (12:36)
[2022-07-24] MEDS ORDERED: ROCURONIUM BROMIDE 10 MG/ML 5 ML VIAL IV ONE (12:36)
[2022-07-24] MEDS ORDERED: NEOSTIGMINE METHYLSULFATE 1 MG/ML 10ML VIAL ONE (12:36)
[2022-07-24] MEDS ORDERED: LIDOCAINE 2% MPF LOCAL 5 ML VIAL INFIL ONE (12:36)
[2022-07-24] MEDS ORDERED: DEXAMETHASONE SOD INJ 4 MG/ML VIAL ONE (12:36)
[2022-07-24] MEDS ORDERED: PROPOFOL IV EMULSION 10 MG/ML 20 ML VIAL IV ONE (12:36)
[2022-07-24] MEDS ORDERED: MIDAZOLAM HCL 1 MG/ML 2ML VIAL ONE (12:36)
[2022-07-24] MEDS ORDERED: ATROPINE SULFATE 0.1 MG/ML 10ML SYR IV PRN (12:43)
[2022-07-24] MEDS ORDERED: ONDANSETRON INJ 2 MG/ML 2 ML VIAL IV PRN (12:43)
[2022-07-24] MEDS ORDERED: ePHEDrine sulfate 50 MG/ML AMP IV PRN (12:43)
--- NOTE | 2022-07-24 12:49 | Hospitalist Progress Note ---
Date of Service July 24, 2022 Assessment & Plan (1) Abscess, perirectal: Plan: Perirectal abscess noted on US. failed outpatient management, presented to the ED with chills -Continue Zosyn -Pain control with Tylenol PRN, Oxycodone PRN -Plan is for I and D by Gen surgery -Patient is medically stable and cleared for surgery (2) Constipation: Plan: Patient reports constipation -Colace 100mg po BID -Miralax daily PRN -Monitor output (3) LPRD (laryngopharyngeal reflux disease): Plan: On Omeprazole at home -Protonix 40mg po daily here (4) Hypothyroidism: Plan: Chronic. Stable -Continue Levothyroxine 75mcg po daily (5) Hypertension, benign essential, goal below 140/90: Plan: Chronic. BP is adequate at present -Continue Losartan 100mg po daily -Monitor (6) Hyperlipidemia LDL goal <130: Plan: Chronic. Stable -Continue Lipitor 10mg po daily (7) Urinary retention: Plan: Patient developed some difficulty with urination then incontinence. He was seen by Urology on 07/23/22 and had a Luo placed. Dark yellow urine in the bag at present. Patient does have a history of prostate cancer for which he follows with Urology s.o XRT, Lupron. He is to followup in August 2022. -Maintain Ulo -Monitor I/Os -Continue Solifenacin -Will send PSA given urinary changes and history of malignancy - he is nearly due for routine followup testing -Urology followup Plan F/E/N - LR at 125mL/hr x 1L Ppx - Lovenox Code -Full Admission and Anticipated Discharge Date Admission Date: July 23, 2022 Subjective patient seen and examined, family by the bedside, complains of chills Review of Systems Review of Systems: All systems reviewed are negative, apart from the ones contained in the history. Physical Exam Physical Exam: The patient is awake, alert and oriented 3, well developed and well nourished, normocephalic and atraumatic, lying in bed and in no acute distress. HEENT--PERRL, EOMI, mucous membranes and oropharynx mildly dry Neck--supple. No JVD. No bruits. Thyroid normal, trachea midline, no adenopathy. Heart--normal S1 and S2. No murmurs, rubs or gallops. Lungs--clear bilaterally, no respiratory distress, no accessory muscle use. Abdomen--normal bowel sounds and soft. Mild epigastric and left sided abdominal pain Extremities--no cyanosis or clubbing. No edema. Dermatologic--normal skin turgor, normal color, no abnormal lymph nodes, no rash. Neurologic--cranial nerves II through XII grossly intact. Rheumatologic--normal range of motion. Psychiatric--normal affect. Results & Data Results & Data ([facility]) Vital Signs (Past 12 Hours) Vital Signs Temp Pulse Resp BP BP Pulse Ox O2 Del Method 07/24/22 11:48 98.4 F 70 18 115/46 L 94 Room Air 07/24/22 07:21 98.6 F 71 16 144/79 H 93 Room Air PG Care Time/CCT Total # of Minutes Spent Total Time Spent with Patient: Total time spent is greater than 50% in coordination of care (as documented) at patient's floor/unit and/or counseling patient: Coding Level of Care Code 52738 SUB INP/OBS CARE 2/35MIN Diagnoses Abscess, perirectal K61.1 Constipation K59.00 Constipation type: unspecified constipation type LPRD (laryngopharyngeal reflux disease) K21.9 Hypothyroidism E03.9 Hypertension, benign essential, goal below 140/90 I10 Hyperlipidemia LDL goal <130 E78.5 Urinary retention R33.9 Time Spent (min) 35 (1) Constipation Constipation type: unspecified constipation type Qualified Code(s): K59.00 - Constipation, unspecified
[2022-07-24] MEDS ORDERED: BUPIVACAINE/EPINEPHRINE 0.5% MPF 1:200,000 30 ML VIAL ONE (12:56)
--- NOTE | 2022-07-24 13:35 | Post Operative Brief Note ---
PG Immediate Post Op with CF Date of Surgery July 24, 2022 Pre & Post Diagnosis Operation Date: 07/24/22 14:30 Perirectal abscess I identified the patient and participated in the time-out.: Yes Procedure Operation Date: 07/24/22 14:30 Incision and drainage of perirectal abscess Surgeon Omari Begum, Necktie Turner None Estimated Blood Loss 5 Findings Consistent with Post-Op Diagnosis Specimens Specimen Description: Perirectal abscess fluid for culture Anesthesia Type General Complications none Disposition Disposition: Recovery Room
--- NOTE | 2022-07-24 13:38 | Operative Report ---
PG Post Operative Report Pre & Post Diagnosis Operation Date: 07/24/22 14:30 Perirectal abscess I identified the patient and participated in the time-out.: Yes Procedure Operation Date: 07/24/22 14:30 Incision and drainage of perirectal abscess Surgeon Omari Begum, DO Hris Coordinator None Estimated Blood Loss 5 Findings Consistent with Post-Op Diagnosis Specimens Perirectal abscess fluid for culture Drains None Anesthesia Type General Complications none Disposition Disposition: Recovery Room Indications 72-year-old male with perirectal abscess Description of Procedure The patient was brought to the OR and placed in the prone jackknife position. At this time he underwent General endotracheal anesthesia without issue. He was given appropriate pre-operative antibiotics. The perineum was prepped and draped in the usual sterile fashion. A timeout was called. The procedure was verified as Incision and drainage of maryan-rectal abscess. Surgical, anesthesia and nursing teams agreed and the procedure was begun. Digital rectal exam was performed and no mass or fistula was found. There was a fullness to the right perirectal tissue. After injection of 0.25% Marcaine with epinephrine, an incision was made directly over the most fluctuant area of abscess using a #11 blade scalpel. Initially just beneath the skin there was no fluid encountered. After probing deeper along the right perirectal tissues purulent fluid was encountered. Wide drainage was ensured. All loculations were broken up bluntly. At this time the incision was irrigated until clear. Hemostasis was achieved using electrocautery. Hemostasis was complete. The incision was packed with 1 inch plain packing. Sterile dressing was applied. The patient was awakened from anesthesia and taken to PACU having remained stable throughout the entire case. All needle and sponge counts correct x 2. I attest to the content of the Intraoperative Record and any orders documented therein. Any exceptions are noted below.
[2022-07-24] MEDS ORDERED: MoRPHine SULFATE 2 MG/ML CARP IV PRN (14:29)
--- NOTE | 2022-07-24 14:29 | Anesthesiology Progress Note ---
Date of Service July 24, 2022 Anesthesia Post Procedure Vital Signs Vital Signs: Temp Pulse Pulse Pulse Resp BP BP 07/24/22 14:15 75 15 07/24/22 14:05 76 12 07/24/22 13:55 71 16 07/24/22 13:46 96.8 F L 75 12 07/24/22 11:48 98.4 F 70 18 07/24/22 07:21 98.6 F 71 16 144/79 H 07/23/22 23:43 98.2 F 84 18 138/79 07/23/22 20:08 98.8 F 98 H 18 152/83 H BP Pulse Ox O2 Del Method O2 Flow Rate 07/24/22 14:15 147/65 H 95 Room Air 07/24/22 14:05 151/86 H 100 Room Air 07/24/22 13:55 137/83 100 Oxymask 5 07/24/22 13:46 135/77 100 Oxymask 5 07/24/22 11:48 115/46 L 94 Room Air 07/24/22 07:21 93 Room Air 07/23/22 23:43 98 Room Air 07/23/22 20:08 96 Room Air Pain Intensity Rectal: Pain Intensity: 5 Transfer of Care Handoff Completed per policy Notes Mental Status: alert / awake / arousable and participated in evaluation Patient Amnestic to Procedure: Yes Nausea / Vomiting: adequately controlled Pain: adequately controlled Airway Patency, RR, SpO2: stable & adequate BP & HR: stable & adequate Hydration State: stable & adequate Anesthetic Complications: no major complications apparent and Pt Satisfied with anesthetic care
[2022-07-24] MEDS ORDERED: ATORVASTATIN 10 MG TAB PO SCH (21:00)
[2022-07-25] MEDS: LEVOTHYROXINE SODIUM 75 MCG TABLET PO SCH (05:37)
[2022-07-25] MEDS: PIPERACILLIN/TAZOBACTAM 4.5 GM in DEXTROSE 5% 100 ML IV SCH (05:37)
[2022-07-25] MEDS: VESICARE~ORDER AWAITING ACTION SCH (08:12)
[2022-07-25] MEDS: PANTOprazole 40 MG TAB PO SCH (08:13)
[2022-07-25] MEDS: LOSARTAN POTASSIUM 50 MG TAB PO SCH (08:14)
[2022-07-25 08:49] LABS: Basophils # (auto) 0.03 K/uL (0-0.2); Basophils % (auto) 0.3 %; Eosinophils # (auto) 0.01 K/uL (0-0.50); Eosinophils % (auto) 0.1 %; Hematocrit (blood only) 40.1 % (40.1-51.0); Hemoglobin 13.6 g/dl (14.0-18.0); Immature Granulocytes # (auto) 0.13 K/uL (0.00-0.02); Immature Granulocytes % (auto) 1.2 %; Lymphocytes # (auto) 1.21 K/uL (1.2-3.4); Lymphocytes % (auto) 10.9 %; Mean Corpuscular Hemoglobin 29.8 pg (25.0-34.0); Mean Corpuscular Hgb Conc 33.9 g/dL (32.0-36.0); Mean Corpuscular Volume 87.9 fL (80.0-100.0); Mean Platelet Volume 10.6 fL (9.4-12.4); Monocytes # (auto) 0.94 K/uL (0.24-0.82); Monocytes % (auto) 8.5 %; Neutrophils # (auto) 8.74 K/uL (1.4-6.5); Platelet Count 228 K/uL (130-400); RDW Coefficient of Variation 12.9 % (11.5-14.5); RDW Standard Deviation 41.3 fL (36.4-46.3); Red Blood Count 4.56 M/uL (4.63-6.08); White Blood Count 11.06 K/ul (4.8-10.8)
[2022-07-25 09:14] LABS: BUN Creatinine Ratio 13.3 (10-20); Calcium 8.6 mg/dl (8.5-10.1); Creatinine Clr Calc Pharmacy 102.3 ml/min; Est GFR (African American) 99.2 ml/min; Est GFR (Non-African American) 85.6 ml/min
--- NOTE | 2022-07-25 10:35 | Surgery Progress Note ---
Date of Service July 25, 2022 Assessment & Plan (1) Abscess, perirectal: Plan: His wound was repacked at the bedside, he tolerated this well He stable for discharge from a surgical standpoint today He was instructed to remove the packing tomorrow evening, then can place a dry gauze over the incision daily and as needed for drainage, no need to repack If possible he can start twice daily warm water soaks to the wound base to help with pain and healing His wound cultures showing anaerobic gram-negative bacilli, would give him Cipro and Flagyl x10 days p.o. once discharged He can follow-up with me or Thursday of next week for a wound check Surgery will sign off at this time, please call with any questions or concerns Admission and Anticipated Discharge Date Admission Date: July 23, 2022 Subjective Patient seen and examined. States his perianal area feels better. No acute vents overnight. Afebrile. Not having much pain. Physical Exam Constitutional: WD/WN, vitals as above Skin: Right buttock incision repacked at bedside, minimal purulence Results & Data ([facility]) Vital Signs (Past 12 Hours) Vital Signs Temp Pulse Resp BP BP Pulse Ox O2 Del Method 07/25/22 09:00 Room Air 07/25/22 08:07 36.7 C 69 17 160/94 H 93 Room Air 07/25/22 02:31 37.0 C 67 16 129/79 95 Room Air PG Care Time/CCT Total # of Minutes Spent Total Time Spent with Patient: Total time spent is greater than 50% in coordination of care (as documented) at patient's floor/unit and/or counseling patient: Coding Level of Care Code None Diagnoses Abscess, perirectal K61.1
--- NOTE | 2022-07-25 14:06 | Discharge Summary ---
Date of Service July 25, 2022 Admission HPI Per Admitting Provider Douglas Junior is a 72yo male with history of HTN, HLP and GERD presenting with perirectal pain. Patient had constipation for which he was seen in the ER on two occasions - 07/18/22 and 07/19/22. He had a CT of the abdomen and pelvis on 07/18/22 which showed no acute intra-abdominal or intrapelvic abnormality. He was seen by his PCP on 07/21/22 with complaint of pain in the right buttock as well as chills. A soft tissue ultrasound was performed which revealed a right perianal multiloculated complex subcutaneous fluid collection measuring 2.4 x 1.2 x 0.7cm favoring subcutaneous/ perianal abscess. Patient was seen by General Surgery on 07/23/22 and was started on Augmentin x 14 day course. Patient developed a fever to 101.8 with chills which prompted him to come to the ER today. He denies chest pain, cough, SOB. Denies abdominal pain, nausea, vomiting, diarrhea. He has been having some urinary retention and was seen by Urology today 07/23/22 and had a Luo catheter placed. He has been taking Colace and Miralax, still constipated. No additional complaints. Principal Diagnosis maryan rectal abscess Discharge Exam The patient is awake, alert and oriented 3, well developed and well nourished, normocephalic and atraumatic, lying in bed and in no acute distress. HEENT--PERRL, EOMI, mucous membranes and oropharynx mildly dry Neck--supple. No JVD. No bruits. Thyroid normal, trachea midline, no adenopathy. Heart--normal S1 and S2. No murmurs, rubs or gallops. Lungs--clear bilaterally, no respiratory distress, no accessory muscle use. Abdomen--normal bowel sounds and soft. Mild epigastric and left sided abdominal pain Extremities--no cyanosis or clubbing. No edema. Dermatologic--normal skin turgor, normal color, no abnormal lymph nodes, no rash. Neurologic--cranial nerves II through XII grossly intact. Rheumatologic--normal range of motion. Psychiatric--normal affect. Discharge Data Allergies Allergy/AdvReac Type Severity Reaction Status Date / Time povidone-iodine Allergy Intermediate skin Verified 01/11/23 22:23 [From Betadine] redness and irritation soap [From Betadine] Allergy Intermediate skin Verified 07/23/22 22:23 redness and irritation tramadol AdvReac Intermediate SEDATED Verified 07/23/22 22:23 AND CONSTIPATION Consultations 07/23/22 22:27 ED Decision to Admit Stat 07/23/22 23:32 Consult General Surgery Routine Procedures Performed Operation Date: 07/24/22 14:30 Actual Procedures p Incision and Drainage Perianal Abscess(Not Applicable) - Omari Begum DO Ordered Studies 07/24/22 US liver Routine Hospital Course (1) Abscess, perirectal: Perirectal abscess noted on US. failed outpatient management, presented to the ED with chills -s/p incision and Drainage -Pain control with Tylenol PRN, Oxycodone PRN -Discharge on PO Cipro and Flagyl for 10 days -Outpatient follow up with surgery (2) Constipation: Patient reports constipation -Colace 100mg po BID -Miralax daily PRN -Monitor output (3) LPRD (laryngopharyngeal reflux disease): On Omeprazole at home -Protonix 40mg po daily here (4) Hypothyroidism: Chronic. Stable -Continue Levothyroxine 75mcg po daily (5) Hypertension, benign essential, goal below 140/90: Chronic. BP is adequate at present -Continue Losartan 100mg po daily -Monitor (6) Hyperlipidemia LDL goal <130: Chronic. Stable -Continue Lipitor 10mg po daily (7) Urinary retention: Patient developed some difficulty with urination then incontinence. He was seen by Urology on 07/23/22 and had a Luo placed. Dark yellow urine in the bag at present. Patient does have a history of prostate cancer for which he follows with Urology s.o XRT, Lupron. He is to followup in August 2022. -Maintain Luo -Monitor I/Os -Continue Solifenacin -Will send PSA given urinary changes and history of malignancy - he is nearly due for routine followup testing -Urology followup Plan F/E/N - LR at 125mL/hr x 1L Ppx - Lovenox Code -Full Total Time Total Time Spent Total Time Spent (In Minutes): 35 Discharge Plan Discharge Items Patient Disposition: Home - Self-Care Reason For Visit: PERIRECTAL ABCESS, FEVER Discharge Diagnosis: incision and drainage of perirectal abscess Activity: Per Instructions section Bathing: No limitations Non-emergency contact: Primary Care Provider and Surgeon Call non-emergency contact if: you have any medication questions, your symptoms worsen, your pain is not controlled, your pain is concerning for you, you have a fever, your temperature is above 101.5, your wound has increased redness, your wound has increased drainage and your wound pain has increased Follow-up/Referrals: Radha Castelan MD [Primary Care Provider] - 07/28/22 4:00 pm (If unable to keep this appointment please call the office to reschedule. ) Omari Begum DO [Physician] - 08/01/22 9:15 am (Please call to schedule follow up in clinic within 1 week ) Diet: Regular Addtl Attending Provider Instructions: remove the packing tomorrow evening (07/26/22), then can place a dry gauze over the incision daily and as needed for drainage, no need to repack may take warm tub soaks as needed to help with pain/swelling/cleansing of the area Pending Studies at Discharge: No Stand-Alone Forms: My [facility], Smoking Cessation Medications and DC Order Prescriptions: New ciprofloxacin HCl 500 mg tablet 500 mg PO BID 10 Days Qty: 20 0RF metronidazole 500 mg tablet 500 mg PO BID 10 Days Qty: 20 0RF Continued atorvastatin 10 mg tablet 10 mg PO QPM Qty: 30 5RF levothyroxine 75 mcg tablet 75 mcg PO QAM Qty: 90 3RF losartan 100 mg tablet 100 mg PO QAM Qty: 90 3RF ketoconazole 2 % cream 1 applic topical BID Qty: 30 1RF Rx Instructions: Apply to areas of the groin twice daily x 2 weeks as directed for flaring. vitamin A39-[id number] acid 500-400 mcg tablet 1 tab PO QAM hydrocodone-acetaminophen 5-325 mg tablet See Rx Instructions PO .COMPLEX PRN (Reason: pain) Qty: 20 0RF Rx Instructions: Take 1-2 tabs orally q4-6 hrs PRN; solifenacin [Vesicare] 5 mg tablet 5 mg PO DAILY Qty: 90 3RF omeprazole 20 mg capsule,delayed release(DR/EC) 20 mg PO DAILY Qty: 30 6RF Rx Instructions: Take on an empty stomach and 30-min before a meal. cholecalciferol (vitamin D3) [Vitamin D3] 1,000 unit (25 mcg) Tablet 2,000 unit PO QAM calcium carbonate [Tums] 200 mg calcium (500 mg) Tablet,Chewable 200 mg PO TID PRN (Reason: Heartburn) calcium carbonate 500 mg calcium (1,250 mg) Tablet 500 mg PO QDD triamcinolone acetonide 0.1 % cream 1 applic topical BID PRN (Reason: Skin Irritation) Rx Instructions: Apply to areas of the neck twice daily x 2 weeks as directed. Discontinued amoxicillin-pot clavulanate 875-125 mg tablet 1 tab PO BID Qty: 28 0RF Rx Instructions: BEGIN 07/23/22 Discharge Orders: Discharge Order (Routine); Ordered 07/25/22 Ordered By: Peg Whitfield/Other Patient Handouts: Wound Care Admission Data Admit Date/Time: 07/23/22 22:38 Attending Provider: Peg Ruffin Admit Provider: Sherry Lipscomb Primary Care Provider: Radha Castelan Other Providers: Sherry Lipscomb ; Omari Begum Other Interventions: Discharge Summary Assessment (RN) Last Done: 07/25/22 11:32 Coding Level of Care Code HOSP INP/OBS DISCH >30 MIN Diagnoses Abscess, perirectal K61.1 Constipation K59.00 Constipation type: unspecified constipation type LPRD (laryngopharyngeal reflux disease) K21.9 Hypothyroidism E03.9 Hypertension, benign essential, goal below 140/90 I10 Hyperlipidemia LDL goal <130 E78.5 Urinary retention R33.9 Time Spent (min) 35
== END 2022-07-25 13:33 | disposition home health service (06) | DRG 346 ==
LOC: ED 19:53 → 3W 22:38 → SUATTDRO 22:38 → 3W 23:10